=== PATIENT | female | born 1970 | race Two or more races ===

== ENCOUNTER → 2021-11-14 | Outpatient (CLI) | payer OTHER ==
[~2021-11-14] MED LIST: HYDR-2761 PO
== END ==
LOC: LAB 10:01
PROVIDERS: ATTEND Orthopaedic Surgery
DX: Z01.812 Encounter for preprocedural laboratory examination (principal); Z20.822 Contact with and (suspected) exposure to COVID-19
CPT/HCPCS: U0003; U0005

== ENCOUNTER 2021-11-16 05:48 | Day surgery (SDC) | payer OTHER ==
[~2021-11-16] VITALS: Ht 160 cm; Wt 83.0 kg
[2021-11-16] MEDS ORDERED: IV RINGERS,LACTATED 1000ML 1,000 ML IV SCH (06:00)
[2021-11-16] MEDS ORDERED: PROCHLORPERAZINE 10 MG/2 ML VIAL. IVP PRN (06:00)
[2021-11-16] MEDS ORDERED: fentaNYL PF VIAL 100 MCG/2 ML VIAL IVP PRN ×2 (06:00)
[2021-11-16] MEDS ORDERED: HYDROmorphone 2 MG/ML INJ. IVP PRN (06:00)
[2021-11-16] MEDS ORDERED: MORPHINE SULFATE 2 MG/ML INJ. IVP PRN (06:00)
[2021-11-16 06:19] VITALS: BP 150/72
[2021-11-16] MEDS ORDERED: ROPIVacaine 0.5% PF 20 ML VIAL. ONE (06:45)
[2021-11-16] MEDS ORDERED: MIDAZOLAM HCL/PF 2 MG/2 ML VIAL. ONE (06:45)
[2021-11-16] MEDS ORDERED: ROCURONIUM 50 MG/5 ML VIAL. ONE (06:52)
[2021-11-16] MEDS ORDERED: PROPOFOL 10 MG/ML (20ML) VIAL. IV ONE (06:52)
[2021-11-16] MEDS ORDERED: SUCCINYLCHOLINE 200 MG/10 ML VIAL. ONE (06:58)
[2021-11-16] MEDS ORDERED: fentaNYL PF VIAL 100 MCG/2 ML VIAL ONE ×2 (07:02→09:50)
[2021-11-16] MEDS ORDERED: EPINEPHrine VIAL 30 MG/30 ML VIAL ONE (07:04)
[2021-11-16] MEDS ORDERED: DEXAMETHASONE SOD PHOS 4 MG/ML VIAL ONE (07:07)
[2021-11-16] MEDS ORDERED: ONDANSETRON PF 4 MG/2 ML VIAL. ONE (07:07)
[2021-11-16] MEDS ORDERED: ePHEDrine PF IN SALINE 50 MG/10 ML SYRINGE. IV ONE (07:09)
[2021-11-16] MEDS ORDERED: PHENYLEPHRINE in 0.9% NACL PF 1 MG/10 ML SYRINGE. IV ONE (07:09)
[2021-11-16] MEDS ORDERED: EPINEPHrine VIAL 30 MG/30 ML VIAL IM ONE (07:58)
[2021-11-16] MEDS ORDERED: SUGAMMADEX SODIUM 200 MG/2 ML VIAL. IVP ONE (08:00)
[2021-11-16] MEDS ORDERED: HYDR-2761 PO (08:51)
--- NOTE | 2021-11-16 08:54 | DISCH ---
DISCHARGE INSTRUCTIONS Condition on Discharge Condition on Discharge: Stable Activity After Discharge Activity Instructions for Disc: Activity as tolerated Driving Instructions after Dis: No driving for 2 weeks Wound Incision Care Wound/Incision Care: Ice to area for comfort, Do not change dressing Follow-Up Follow up with: 10 to 14 days Treatment/Equipment after DC Adaptive Equipment Issued: Brace/splint (Maintain immobilizer at all times right shoulder) MAHAD REY Jr. DO Nov 16, 2021 08:54
--- NOTE | 2021-11-16 08:55 | PDOC4 ---
OPERATIVE NOTE Date: Date: Nov 16, 2021 Pre-Op Diagnosis: Impingement AC arthrosis rotator cuff tear right shoulder Post-Op Diagnosis: Same Procedure Performed: Right shoulder arthroscopy with subacromial decompression distal clavicle resection 1 cm with mini open rotator cuff repair Surgeon: Connie Anesthesia Type: General Blood Loss: 30 cc Specimans Obtained: None Findings: See dictation Complications: None MAHAD REY Jr. DO Nov 16, 2021 08:55
--- NOTE | 2021-11-16 09:00 | OP ---
DATE OF SURGERY: 11/16/2021 PREOPERATIVE DIAGNOSES: Impingement, acromioclavicular arthrosis, rotator cuff tear, right shoulder. POSTOPERATIVE DIAGNOSES: Impingement Acromioclavicular arthrosis, rotator cuff tear, right shoulder. PROCEDURE: Right shoulder arthroscopy with subacromial decompression, distal clavicle resection, mini open rotator cuff repair. SURGEON: Quinn Rosales Jr, DO GAME DESIGN INSTRUCTOR: Derek Hanna. ANESTHESIA: General. COMPLICATIONS: None. ESTIMATED BLOOD LOSS: 30 mL. DESCRIPTION OF PROCEDURE: The patient was taken to the operative suite, given a general anesthetic, placed in a beach chair position. The standard posterior portal was established. The glenohumeral joint was visualized and noted to be completely intact. No degenerative changes were noted of the glenoid or the humerus. There was also no significant issues as far as the labral tissue or the biceps tendon. The undersurface of the cuff revealed there to be significant fraying and partial tearing toward the area of the supraspinatus. Anterior portal was established and then probing of the labral tissue revealed there to be no issues. The biceps tendon also no issues at all. There were no loose bodies within the inferior pouch. This was clean. The scope was then taken into the subacromial region. There was significant downsloping of the anterior acromion, type 2 acromion at least was noted, almost type 3 and then the AC joint had significant arthritic changes with downgoing osteophytes. Therefore, the osteophytes were removed from the acromion. The downsloping was taken care of with subacromial decompression and then the anterior portal was reestablished to remove 1 cm from the distal clavicle as well as the undersurface spurring on the acromion and the clavicle at that point. After this was decompressed, there was noted to be a complete tear of the rotator cuff along the area of the supraspinatus. This appeared to be 1.5-2 cm. Therefore, a mini open incision was made after all the arthroscopic instruments were removed. The incision was made through skin and subcutaneous tissues, incorporating the lateral portal through the deltoid fascia, which was split. Then, the retractors were placed anteriorly and posteriorly. Debridement was undertaken of the footprint and then 2 anchors were placed along the area for the medial row. This was then placed with a Scorpion through the cuff. After this was placed through the rotator cuff, 2 SwiveLocks were used laterally and this was tied down using one suture from each of the medial row tape. This fixated this significantly down, one of the anterior portions had tissue that was slightly elevated. Therefore, a secondary suture from the SwiveLock laterally was used to tie this back down, which placed this in anatomic position with full coverage of the footprint and humeral head region. All sutures were then cut and appropriately, this was irrigated and suctioned dry. The deltoid split was reapproximated. Superficial tissues and skin was reapproximated. Sterile dressing was applied. The patient was then taken from the operative bed to the postoperative bed, taken to the PACU in stable condition. KEITH DR: Marcell TID: [id number]
[2021-11-16] MEDS ORDERED: HYDROcodone/APAP 5/325MG 1 TAB TABLET PO ONE (09:30)
[2021-11-16 10:15] VITALS: BP 118/72
--- NOTE | 2021-11-21 12:16 | PREOP HP ---
DATE OF SERVICE: 11/16/2021 HISTORY OF PRESENT ILLNESS: She is here today for right shoulder pain. She has undergone physical therapy and pain and significant decreased range of motion and difficulty with all activities from a work injury, which occurred on 04/12/2021. She has a social work case manager with her for interpretation; however, she describes this pain as ongoing and continuing and again, she has failed all conservative therapies and is here today for right shoulder arthroscopy with repair. REVIEW OF SYSTEMS: Unremarkable other than her current right shoulder symptoms. PAST MEDICAL HISTORY: Remarkable for a GI bleed. PAST SURGICAL HISTORY: Left oophorectomy as well as laparoscopic surgery for GI bleeds. FAMILY HISTORY: Diabetes and seizure disorder. SOCIAL HISTORY: The patient has never used any tobacco or alcohol at this point. MEDICATIONS: Only Tylenol. She does not have the ability to take nonsteroidal anti-inflammatories. ALLERGIES: No known drug allergies. PHYSICAL EXAMINATION: GENERAL: She is alert and oriented x 3. CHEST: She is clear to auscultation in all landin. ABDOMEN: She has soft abdomen with no tenderness with palpation at all. EXTREMITIES: The examination of the right shoulder shows impingement at 90 degrees of forward elevation as well as abduction, although possible to 110 and 130 degrees respectively today. Pain with internal and external rotation. She does have some mild weakness of the supraspinatus, but no weakness with internal rotation. Negative Speed test, negative Fairdealing's test. No other significant findings. No atrophy of musculature. Distal neurovascular status is fully intact. IMPRESSION: Probable rotator cuff tear, right shoulder with AC arthrosis, right shoulder, possible SLAP tear. PLAN: At this time, we have gone over all the treatment options and she has failed conservative therapies. I have talked with her at length about the treatment options. She wishes to undergo right shoulder arthroscopy with possible biceps tenolysis versus tenodesis and possible rotator cuff repair after subacromial decompression and distal clavicle resection arthroscopically. All questions were answered. We will head to surgery as soon as she is seen and talked with Anesthesia. SHERON/HELADIO/AQUILINO DR: Marcell TID: [id number]
== END 2021-11-16 10:45 | disposition home or self-care (01) ==
LOC: SURG 05:48
PROVIDERS: ATTEND Orthopaedic Surgery
DX: M75.101 Unspecified rotator cuff tear or rupture of right shoulder, not specified as traumatic (principal); M19.011 Primary osteoarthritis, right shoulder; Z79.899 Other long term (current) drug therapy; Z98.890 Other specified postprocedural states; Z83.3 Family history of diabetes mellitus
CPT/HCPCS: 29824; 29826; 29827; A4209; A4565; A4930; C1713; J0171; J0330; J0690; J1100; J2250; J2370; J2405; J2704; J2795; J3010; J3490; A4452